=== PATIENT | female | born 1965 | race Caucasian/White ===

== ENCOUNTER 2018-01-10 23:50 | Emergency (ER) | payer MEDICAID ==
[2018-01-11] MEDS ORDERED: LIDOCAINE 5% (700 MG) TRANSDERMAL ADH..PATCH TP ONE (00:40)
[2018-01-11] MEDS ORDERED: FENTANYL CITRATE INJ/PF 100 MCG/2 ML AMPUL IV PRN (00:40)
[2018-01-11] MEDS ORDERED: KETOROLAC TROMETHAMINE INJ/PF 30 MG/1 ML SDV IV ONE (00:40)
--- NOTE | 2018-01-11 00:42 | ER Document Report ---
ED General - General Chief Complaint: Fall Stated Complaint: FALL/BACK PAIN Time Seen by Provider: 01/10/18 23:58 Notes: Patient is a 52-year-old female without past medical history presents after a fall down 5-6 stairs. Patient states that she was walking her dog whom wrapped her feet up in its leash. She states this caused her to fall down the steps. She states that she landed on the right hip and hit the right side of her head. She denies any loss of consciousness, focal weakness, numbness, vomiting, altered mental status, or significant head pain. She does not use any form of anticoagulation. She does note a severe, constant, throbbing pain to her right hip although notes it feels like it is "just really bruised and sore". EMS was contacted and patient was transported to the emergency department. She has not ambulated since the fall. Patient does also complain of some mild pain to the right side of her neck and trapezius. She denies any midline cervical spine tenderness. She has no history of similar injuries in the past. She did receive fentanyl prior to arrival which she states moderately improved her pain. She states any attempt at moving the right hip worsens her pain. TRAVEL OUTSIDE OF THE [place] IN LAST 30 DAYS: No - Related Data Allergies/Adverse Reactions: codeine [Codeine] Adverse Reaction (Verified 04/17/15 15:46) itching Past Medical History - General Information source: Patient - Social History Smoking Status: Never Smoker Chew tobacco use (# tins/day): No Frequency of alcohol use: None Drug Abuse: None Lives with: Alone Family History: Reviewed & Not Pertinent Patient has suicidal ideation: No Patient has homicidal ideation: No - Past Medical History Cardiac Medical History: Denies: Hx Coronary Artery Disease, Hx Heart Attack, Hx Hypertension Pulmonary Medical History: Denies: Hx Asthma, Hx Bronchitis, Hx COPD, Hx Pneumonia Neurological Medical History: Denies: Hx Cerebrovascular Accident, Hx Seizures Renal/ Medical History: Denies: Hx Peritoneal Dialysis Musculoskeltal Medical History: Reports Hx Arthritis Past Surgical History: Reports: Hx Abdominal Surgery - GASTRIC BYPASS - Immunizations Hx Diphtheria, Pertussis, Tetanus Vaccination: No Review of Systems - Review of Systems Notes: Constitutional: Negative for fever. Eyes: Negative for visual changes. ENT: Negative for facial injury Cardiovascular: Negative for chest injury. Respiratory: Negative for shortness of breath. Gastrointestinal: Negative for abdominal injury. Genitourinary: Negative for genital injury Musculoskeletal: Positive for right hip pain and right neck pain Skin: Negative for laceration/abrasions. Neurological: Positive for head injury. Physical Exam - Vital signs Vitals: Resp 12 01/11/18 00:26 Interpretation: Normal Notes: PHYSICAL EXAMINATION: GENERAL: Well-appearing, no acute distress. HEAD: Atraumatic, normocephalic. EYES: Pupils equal round and reactive to light, extraocular movements intact, sclera anicteric, conjunctiva are normal. ENT: nares patent, no oral pharyngeal trauma. No hemotympanum, no Zuleta's sign , no raccoon eyes. NECK: No midline cervical spine tenderness. Patient able to move their head to 45 bilaterally without any discomfort. LUNGS: Breath sounds clear to auscultation bilaterally and equal. No wheezes rales or rhonchi. HEART: Regular rate and rhythm without murmurs. CHEST WALL: No ecchymosis over the chest wall. ABDOMEN: Soft, nontender, normoactive bowel sounds. No guarding, no rebound. No abdominal bruising EXTREMITIES: Pain with axial loading and internal/external rotation of the right hip otherwise no areas of limited passive or active range of motion. No pitting or edema. No long bone deformities. BACK: No midline spinal tenderness, step-offs, or deformities. NEUROLOGICAL: Face symmetric. Tongue protrudes midline. Extraocular motions intact. Pupils are 2 mm and equally reactive. Normal speech, normal gait. 5 out of 5 strength in both the distal and proximal upper and lower extremities bilaterally. Sensation is grossly intact throughout. Finger to nose testing normal. Pronator drift normal. PSYCH: Normal mood, normal affect. SKIN: Warm, Dry, normal turgor, no rashes or lesions noted. Course - Re-evaluation Re-evalutation: 01/11/18 00:41 Presentation of a well patient in no acute distress, vitals within normal limits after a mechanical fall. No focal neurologic deficits on exam, no evidence of basilar skull fracture on exam without evidence of hemotympanum, raccoon eyes, or periauricular hematoma. No papilledema. Patient is not on anticoagulation. GCS is 15. No loss of consciousness. No episodes of vomiting. Patient is therefore negative via [place] head CT criteria and CT imaging will not be obtained at this time. Patient also evaluated by nexus criteria and found to be negative. No clinical evidence to suggest increased risk of cervical spine fracture. No indication for further imaging of the cervical spine. Patient's only extremity injury is a possible right hip injury she does have pain with axial loading and internal rotation of the hip. She states that it feels more sore. There is no shortening of the hip or internal/ external rotation. Will obtain an x-ray to further clarify. Chest and abdominal exam are benign without any focal tenderness, shortness of breath, or bruising over the chest or abdominal wall. Patient has no flank tenderness. 01/11/18 01:30 Right hip x-ray does not demonstrate any evidence of acute fracture dislocation. Patient has been able to ambulate. Repeat assessment is unremarkable. At this time will discharge with return precautions and follow- up recommendations. Verbal discharge instructions given a the bedside and opportunity for questions given. Medication warnings reviewed. Patient is in agreement with this plan and has verbalized understanding of return precautions and the need for primary care follow-up in the next 24-72 hours. - Vital Signs Vital signs: Temp Pulse Resp BP Pulse Ox 98.6 F 18 115/68 98 01/11/18 02:03 01/11/18 02:03 01/11/18 02:03 01/11/18 02:03 - Diagnostic Test Radiology reviewed: Image reviewed, Reports reviewed Radiology results interpreted by me: 01/11/18 01:30 Right hip and pelvis x-ray: No acute fracture dislocation Discharge - Discharge Clinical Impression: Fall Qualifiers: Encounter type: initial encounter Qualified Code(s): W19.XXXA - Unspecified fall, initial encounter Head trauma Qualifiers: Encounter type: initial encounter Qualified Code(s): S09.90XA - Unspecified injury of head, initial encounter Injury of right hip Qualifiers: Encounter type: initial encounter Qualified Code(s): S79.911A - Unspecified injury of right hip, initial encounter Condition: Good Disposition: HOME, SELF-CARE Additional Instructions: You have been seen in the Emergency Department (ED) today following a fall. Your workup today did not reveal any injuries that require you to stay in the hospital. You can expect, though, to be stiff and sore for the next several days. You can take ibuprofen 600 mg every 6 hours as needed for pain. You can apply a hot pack or electric heating pad to the sore areas. You can also use topical "Aspercreme with lidocaine" to sore areas as needed. Please follow up with your primary care doctor as soon as possible regarding today's ED visit and your recent accident. Call your doctor or return to the ED if you develop a sudden or severe headache , confusion, slurred speech, facial droop, weakness or numbness in any arm or leg, extreme fatigue, vomiting more than two times, severe abdominal pain, or other symptoms that concern you. Referrals: ROBERTO GUTIERREZ PA-C [Primary Care Provider] - Follow up as needed
--- NOTE | 2018-01-11 01:50 | RADIOLOGY REPORT (SQ) ---
EXAM DESCRIPTION: HIP RIGHT AP/LATERAL CLINICAL HISTORY: fall, pain COMPARISON: 09/01/2014 FINDINGS: Single view of the pelvis and lateral view of the right hip. No acute fracture or dislocation. Normal osseous mineralization. No abnormalities of visualized pelvis or sacrum. Pelvic soft tissues are unremarkable. IMPRESSION: No acute fracture or dislocation.
[2018-01-11 02:07] VITALS: BP 115/68
== END 2018-01-11 02:07 | disposition home or self-care (01) ==
LOC: ER 23:50
DX: S79.911A Unspecified injury of right hip, initial encounter (principal); S09.90XA Unspecified injury of head, initial encounter; M25.551 Pain in right hip; M54.2 Cervicalgia; W10.9XXA Fall (on) (from) unspecified stairs and steps, initial encounter; Y93.K1 Activity, walking an animal; Z98.84 Bariatric surgery status
CPT/HCPCS: 99284; 96374; 96375; 73502; J3010; J1885; J3490

== ENCOUNTER 2018-09-20 11:41 | Emergency (ER) | payer MEDICAID ==
--- NOTE | 2018-09-20 12:16 | RADIOLOGY REPORT (SQ) ---
EXAM DESCRIPTION: HAND RIGHT 3 VIEWS COMPLETED DATE/TIME: 09/20/2018 12:08 pm REASON FOR STUDY: punched wall COMPARISON: None. EXAM PARAMETERS: NUMBER OF VIEWS: Three views. TECHNIQUE: AP, lateral and oblique radiographic images acquired of the right hand. LIMITATIONS: None. FINDINGS: MINERALIZATION: Normal. BONES: No acute fracture or dislocation. No worrisome bone lesions. JOINTS: No effusions. SOFT TISSUES: No soft tissue swelling. No foreign body. OTHER: No other significant finding. IMPRESSION: NEGATIVE STUDY OF THE RIGHT HAND. NO RADIOGRAPHIC EVIDENCE OF ACUTE INJURY. TECHNICAL DOCUMENTATION: JOB ID: [id number] [employer]- All Rights Reserved Reading location - IP/workstation name: [email or web address]
[2018-09-20] MEDS ORDERED: IBUPROFEN 600 MG TABLET PO ONE (12:43)
--- NOTE | 2018-09-20 14:01 | RADIOLOGY REPORT (SQ) ---
EXAM DESCRIPTION: KNEE RIGHT 4 VIEWS COMPLETED DATE/TIME: 09/20/2018 1:47 pm REASON FOR STUDY: knee pain s/p fall COMPARISON: None. NUMBER OF VIEWS: Four views. TECHNIQUE: AP, lateral, and both oblique radiographic images acquired of the right knee. LIMITATIONS: None. FINDINGS: MINERALIZATION: Normal. BONES: No acute fracture or dislocation. No worrisome bone lesions. JOINT: No effusion. SOFT TISSUES: No soft tissue swelling. No radio-opaque foreign body. OTHER: No other significant finding. IMPRESSION: NEGATIVE STUDY OF THE RIGHT KNEE. NO RADIOGRAPHIC EVIDENCE OF ACUTE INJURY. TECHNICAL DOCUMENTATION: JOB ID: [id number] [employer]- All Rights Reserved Reading location - IP/workstation name: [email or web address]
--- NOTE | 2018-09-20 14:50 | ER Document Report ---
HPI - HPI Pain Level: 5 Notes: Patient is a 53-year-old female who presents with chief complaint of fall injury. Patient complains of right knee pain and right hand pain. Patient reports she was trying to hang Halloween decorations when the ladder slipped out from under her. Patient denies any other injuries, denies hitting her head , denies any loss of consciousness. - CONSTITUTIONAL Constitutional: DENIES: Fever, Chills - EENT EENT: DENIES: Sore Throat, Ear Pain, Eye problems - NEURO Neurology: DENIES: Headache, Weakness, Vision blurred, Dizzinesss / Vertigo - CARDIOVASCULAR Cardiovascular: DENIES: Chest pain - RESPIRATORY Respiratory: DENIES: Trouble Breathing, Coughing - GASTROINTESTINAL Gastrointestinal: DENIES: Abdominal Pain, Black / Bloody Stools - URINARY Urinary: DENIES: Dysuria, Urgency, Frequency - MUSCULOSKELETAL Musculoskeletal: REPORTS: Extremity pain - right hand and right knee Past Medical History - General Information source: Patient - Social History Smoking Status: Current Every Day Smoker Chew tobacco use (# tins/day): No Frequency of alcohol use: Rare Drug Abuse: None Family History: Reviewed & Not Pertinent Patient has suicidal ideation: No Patient has homicidal ideation: No - Past Medical History Cardiac Medical History: Denies: Hx Coronary Artery Disease, Hx Heart Attack, Hx Hypertension Pulmonary Medical History: Denies: Hx Asthma, Hx Bronchitis, Hx COPD, Hx Pneumonia Neurological Medical History: Denies: Hx Cerebrovascular Accident, Hx Seizures Renal/ Medical History: Denies: Hx Peritoneal Dialysis Musculoskeletal Medical History: Reports Hx Arthritis Past Surgical History: Reports: Hx Abdominal Surgery - GASTRIC BYPASS - Immunizations Hx Diphtheria, Pertussis, Tetanus Vaccination: No Vertical Provider Document - CONSTITUTIONAL Notes: PHYSICAL EXAMINATION: GENERAL: Well-appearing, well-nourished and in no acute distress. HEAD: Atraumatic, normocephalic. EYES: Pupils equal round extraocular movements intact, conjunctiva are normal. ENT: Nares patent NECK: Normal range of motion LUNGS: No respiratory distress Musculoskeletal: Normal range of motion, no swelling, erythema or ecchymosis noted to the right knee, mild swelling noted to patient's right hand, cap refill less than 3 seconds, normal motor and sensation distal to injury. NEUROLOGICAL: Normal speech, normal gait. PSYCH: Normal mood, normal affect. SKIN: Warm, Dry, normal turgor, no rashes or lesions noted. - INFECTION CONTROL TRAVEL OUTSIDE OF THE [place] IN LAST 30 DAYS: No Course - Re-evaluation Re-evalutation: X-rays are negative for any acute fracture or dislocation. Patient will be sent home in stable condition, instructed to take Motrin, ice and elevate any areas of pain. - Vital Signs Vital signs: Temp Pulse Resp BP Pulse Ox 97.9 F 89 18 119/67 98 09/20/18 11:47 09/20/18 11:47 09/20/18 11:47 09/20/18 11:47 09/20/18 11:47 Procedures - Immobilization Right hand Immobilizer type: Dhruv wrap Discharge - Discharge Clinical Impression: Contusion Qualifiers: Encounter type: initial encounter Contusion area: hand Laterality: right Qualified Code(s): S60.221A - Contusion of right hand, initial encounter Knee pain Qualifiers: Chronicity: acute Laterality: right Qualified Code(s): M25.561 - Pain in right knee Condition: Stable Disposition: HOME, SELF-CARE Additional Instructions: Contusion Your injury has resulted in a contusion -- a crushing of the deep tissues. No injury to important structures was detected during the physician's exam. Contusions vary in the amount of pain they cause, and in the length of time required for healing. Typically, the area will become bruised, and will remain painful to touch for two or three weeks. However, most patients are back to working and playing within a few days. After the initial period of rest and cold-packs, your symptoms (together with the doctor's recommendations) will determine how rapidly you can get back to full activity. Usually this means "do what feels okay, but don't do things that hurt." If re-examination was recommended, it's important to follow up as instructed. Call the doctor or return any time if pain increases, if swelling becomes severe, if you develop numbness or weakness in an injured extremity, or if any other alarming symptoms occur. Ice & Elevation Apply ice packs frequently against the painful area. Many different schedules are recommended, such as "20 minutes on, 20 minutes off" or "one hour ice, two hours rest." If you need to work, you may need to go longer between ice treatments. You should plan to have the area ice packed AT LEAST one- fourth of the time. The ice should be applied over the wrap, tape, or splint, or over a layer of cloth -- not directly against the skin. Some ice bags have a built-in cloth and can be put directly on the skin. Your injured part should be elevated as much as possible over the next 48 hours. Try to keep the injury above the level of the heart. Avoid use of the injured area. Elevation and rest will decrease the swelling. All of your x-rays today were negative. There are no fractures or dislocations. Please wear the Dhruv wrap for comfort. Apply ice and elevate as needed to help with pain and inflammation. Take ibuprofen 600 mg every 6 hours for pain. Follow-up with your primary care provider in the next 3-5 days for follow-up. Forms: Return to Work Referrals: ROBERTO GUTIERREZ PA-C [Primary Care Provider] - Follow up as needed
[2018-09-20 14:59] VITALS: BP 138/73
== END 2018-09-20 14:59 | disposition home or self-care (01) ==
LOC: ER 11:41
DX: S60.221A Contusion of right hand, initial encounter (principal); M25.561 Pain in right knee; M79.641 Pain in right hand; W11.XXXA Fall on and from ladder, initial encounter; Y92.007 Garden or yard of unspecified non-institutional (private) residence as the place of occurrence of the external cause; F17.200 Nicotine dependence, unspecified, uncomplicated; Z98.84 Bariatric surgery status
CPT/HCPCS: 99283; 73130; 73564; J3490

== ENCOUNTER 2018-10-31 14:13 | Emergency (ER) | payer MEDICAID ==
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
[2018-10-31] MEDS ORDERED: DIPH/PERTUSS(ACELL)/TETANUS VAC/PF 0.5 ML SYR (>=10YO) IM ONE (14:31)
[2018-10-31] MEDS ORDERED: ONDANSETRON 4 MG TAB.RAPDIS PO ONE (14:31)
[2018-10-31] MEDS ORDERED: DIAZEPAM 2 MG TABLET PO ONE (14:32)
[2018-10-31 15:04] LABS: ABSOLUTE EOSINOPHILS # (AUTO) 0.1 10^3/uL (0.0-0.6); ABSOLUTE LYMPHOCYTES (AUTO) 1.3 10^3/uL (0.5-4.7); ABSOLUTE MONOCYTES (AUTO) 0.5 10^3/uL (0.1-1.4); ABSOLUTE NEUT (AUTO) 5.1 10^3/uL (1.7-8.2); BASOPHILS % (AUTO) 0.6 % (0-2); EOSINOPHILS % (AUTO) 1.2 % (0-6); HEMATOCRIT 33.9 % (36.0-47.0); MEAN CORPUSCULAR HEMOGLOBIN 24.5 pg (27.0-33.4); MEAN CORPUSCULAR HGB CONC 32.4 g/dL (32.0-36.0); MEAN CORPUSCULAR VOLUME 76 fl (80-97); MONOCYTES % (AUTO) 6.6 % (3-13); PLATELET COUNT 377 10^3/uL (150-450); RED BLOOD COUNT 4.48 10^6/uL (3.72-5.28); RED CELL DISTRIBUTION WIDTH 18.9 % (11.5-14.0); SEGMENTED NEUTROPHILS % (AUTO) 72.6 % (42-78); TOTAL CELLS COUNTED % (AUTO) 100 %; WHITE BLOOD COUNT 7.1 10^3/uL (4.0-10.5)
[2018-10-31 15:23] LABS: ALANINE AMINOTRANSFERASE 13 U/L (9-52); ALBUMIN 3.7 g/dL (3.5-5.0); ALKALINE PHOSPHATASE 111 U/L (38-126); ANION GAP 12 (5-19); ASPARTATE AMINO TRANSFERASE 23 U/L (14-36); BILIRUBIN,DIRECT 0.2 mg/dL (0.0-0.4); BILIRUBIN,TOTAL 0.2 mg/dL (0.2-1.3); BLOOD UREA NITROGEN 11 mg/dL (7-20); CALCIUM 9.2 mg/dL (8.4-10.2); CARBON DIOXIDE 24 mmol/L (22-30); CHLORIDE 103 mmol/L (98-107); GLUCOSE 184 mg/dL (75-110); POTASSIUM 4.6 mmol/L (3.6-5.0); SODIUM 138.7 mmol/L (137-145); TOTAL PROTEIN 6.7 g/dL (6.3-8.2)
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
[2018-10-31] MEDS ORDERED: PROCHLORPERAZINE EDISYLATE INJ 10 MG/2 ML VIAL IV ONE (17:15)
[2018-10-31] MEDS ORDERED: DIPHENHYDRAMINE HCL 50 MG/ML VIAL IV ONE (17:15)
[2018-10-31] MEDS ORDERED: NORMAL SALINE 500 ML IV ONE (17:15)
[2018-10-31] MEDS ORDERED: ONDANSETRON ODT 4 MG TAB (6 TAB/ER DISP) PO PRN (18:48)
[2018-10-31 20:27] VITALS: BP 122/69
== END 2018-10-31 19:15 | disposition home or self-care (01) ==
LOC: ER 14:13
DX: S09.90XA Unspecified injury of head, initial encounter (principal); S16.1XXA Strain of muscle, fascia and tendon at neck level, initial encounter; S01.01XA Laceration without foreign body of scalp, initial encounter; R11.0 Nausea; Y04.2XXA Assault by strike against or bumped into by another person, initial encounter; F17.210 Nicotine dependence, cigarettes, uncomplicated; Z88.6 Allergy status to analgesic agent; Z98.84 Bariatric surgery status
CPT/HCPCS: 99284; 90471; 96374; 96375; 36415; 85025; 80053; 70450; 72125; 90715; 12001; L1830; J3490; J1200; S0119; J0780; J7040

== ENCOUNTER 2019-04-12 15:57 | Emergency (ER) | payer MEDICAID ==
--- NOTE | 2019-04-12 17:14 | ER Document Report ---
HPI - HPI Time Seen by Provider: 04/12/19 16:57 Pain Level: 5 Context: Patient is a 54-year-old female who presents the emergency department with a chief complaint of right foot and ankle pain. She states that her pain and swelling have been going on for the past few weeks. She was seen here, was given a steroid shot and an anti-inflammatory shot. They did not do x-rays at that time. She was not able to follow-up with her primary care doctor, because the primary care doctor was not in the office today. She has an extensive psychiatric history. She takes Suboxone, trazodone, Seroquel and other medications for her psychiatric issues. - CONSTITUTIONAL Constitutional: DENIES: Fever, Chills - EENT EENT: DENIES: Sore Throat - NEURO Neurology: DENIES: Headache - RESPIRATORY Respiratory: DENIES: Trouble Breathing - MUSCULOSKELETAL Musculoskeletal: REPORTS: Extremity pain - Right medial ankle Past Medical History - General Information source: Patient - Social History Smoking Status: Unknown if Ever Smoked Family History: Reviewed & Not Pertinent - Past Medical History Cardiac Medical History: Denies: Hx Coronary Artery Disease, Hx Heart Attack, Hx Hypertension Pulmonary Medical History: Denies: Hx Asthma, Hx Bronchitis, Hx COPD, Hx Pneumonia Neurological Medical History: Denies: Hx Cerebrovascular Accident, Hx Seizures Renal/ Medical History: Denies: Hx Peritoneal Dialysis Musculoskeletal Medical History: Reports Hx Arthritis Past Surgical History: Reports: Hx Abdominal Surgery - GASTRIC BYPASS - Immunizations Hx Diphtheria, Pertussis, Tetanus Vaccination: No Vertical Provider Document - CONSTITUTIONAL Agree With Documented VS: Yes Exam Limitations: No Limitations General Appearance: No Apparent Distress - INFECTION CONTROL TRAVEL OUTSIDE OF THE [place] IN LAST 30 DAYS: No - HEENT HEENT: Atraumatic, Normocephalic - NECK Neck: Normal Inspection - RESPIRATORY Respiratory: Breath Sounds Normal, No Respiratory Distress - CARDIOVASCULAR Cardiovascular: Regular Rate, Regular Rhythm - MUSCULOSKELETAL/EXTREMETIES Musculoskeletal/Extremeties: Tender - left medial ankle at the calcaneus, Edema - Mild edema noted to left medial ankle at the calcaneus. negative: Eccymosis - NEURO Level of Consciousness: Awake, Alert, Appropriate Motor/Sensory: No Motor Deficit, No Sensory Deficit - DERM Integumentary: Warm, Dry, No Rash Course - Re-evaluation Re-evalutation: 04/12/19 18:07 Patient does have a calcaneus spur noted on her x-ray. This is most likely the cause of her pain. She has no vascular compromise. Capillary refill is less than 3 seconds. She has good dorsalis pedis and posterior tibial pulses. She will be referred to orthopedics and podiatry. I have advised her that since she is on Suboxone, there are may be no medications that may help her, considering she already received Decadron and Toradol in urgent care with no relief. I discussed the findings with the patient. She is in agreement with this plan. She will be provided crutches here in the emergency department to help keep her off her foot. Verbal discharge instructions were given to the patient. They verbalized understanding. They are stable for discharge. - Vital Signs Vital signs: Temp Pulse Resp BP Pulse Ox 98.7 F 65 18 107/63 98 04/12/19 16:39 04/12/19 16:39 04/12/19 16:39 04/12/19 16:39 04/12/19 16:39 Procedures - Immobilization Right Ankle Pre-Proc Neuro Vasc Exam: Normal Immobilizer type: Dhruv wrap, Crutches Performed by: PCT Post-Proc Neuro Vasc Exam: Normal, Unchanged from pre-exam Alignment checked and good: Yes Discharge - Discharge Clinical Impression: Calcaneal spur of right foot Condition: Stable Disposition: HOME, SELF-CARE Instructions: Dhruv Wrap ([facility]), Use of Crutches ([facility]) Additional Instructions: You were seen today in the emergency department for right foot pain. You do have a spur on your bone in your heel. This is the cause of your pain. Please continue to take the medications you are currently on. Please follow-up with orthopedics or podiatry in regards to this visit. You can continue to take Tylenol 1000 mg and ibuprofen 600 mg every 6 hours for your pain. Forms: Return to School Referrals: ROBERTO GUTIERREZ PA-C [Primary Care Provider] - Follow up as needed CATRACHITA JIMENEZ DPM [ACTIVE STAFF] - Follow up in 3-5 days MICA ARCE MD [ACTIVE STAFF] - Follow up in 3-5 days
--- NOTE | 2019-04-12 17:55 | RADIOLOGY REPORT (SQ) ---
EXAM DESCRIPTION: FOOT RIGHT COMPLETE COMPLETED DATE/TIME: 04/12/2019 5:29 pm REASON FOR STUDY: right foot pain COMPARISON: None. NUMBER OF VIEWS: Three views. TECHNIQUE: AP, lateral and oblique radiographic images acquired of the right foot. LIMITATIONS: None. FINDINGS: MINERALIZATION: Normal. BONES: No fracture. Plantar calcaneal spur. JOINTS: No effusions. SOFT TISSUES: No soft tissue swelling. No foreign body. OTHER: No other significant finding. IMPRESSION: Calcaneal spur. No fracture. TECHNICAL DOCUMENTATION: JOB ID: [id number] [employer]- All Rights Reserved Reading location - IP/workstation name: [email or web address]
--- NOTE | 2019-04-12 17:56 | RADIOLOGY REPORT (SQ) ---
EXAM DESCRIPTION: ANKLE RIGHT COMPLETE COMPLETED DATE/TIME: 04/12/2019 5:29 pm REASON FOR STUDY: ankle/foot pain COMPARISON: None. NUMBER OF VIEWS: Three views. TECHNIQUE: AP, lateral, and oblique radiographic images acquired of the right ankle. LIMITATIONS: None. FINDINGS: MINERALIZATION: Normal. BONES: No fracture. Plantar calcaneal spur. JOINTS: No effusions. SOFT TISSUES: Mild soft tissue swelling more prominent laterally. OTHER: No other significant finding. IMPRESSION: Mild soft tissue swelling. No fracture. Calcaneal spur. TECHNICAL DOCUMENTATION: JOB ID: [id number] [employer]- All Rights Reserved Reading location - IP/workstation name: [email or web address]
[2019-04-12 18:26] VITALS: BP 98/60
== END 2019-04-12 18:28 | disposition home or self-care (01) ==
LOC: ER 15:57
DX: M77.31 Calcaneal spur, right foot (principal); M79.671 Pain in right foot; Z98.84 Bariatric surgery status
CPT/HCPCS: 99283

== ENCOUNTER 2019-07-22 18:31 | Emergency (ER) | payer MEDICAID ==
[2019-07-22 19:32] VITALS: BP 138/86
--- NOTE | 2019-07-22 20:09 | ER Document Report ---
ED Medical Screen (RME) - General Chief Complaint: Shoulder Injury Stated Complaint: RIB PAIN Time Seen by Provider: 07/22/19 20:06 Primary Care Provider: ROBERTO GUTIERREZ PA-C [Primary Care Provider] - Follow up as needed TRAVEL OUTSIDE OF THE [place] IN LAST 30 DAYS: No - Related Data Allergies/Adverse Reactions: codeine [Codeine] Adverse Reaction (Verified 07/04/19 14:26) itching Past Medical History - Past Medical History Cardiac Medical History: Denies: Hx Coronary Artery Disease, Hx Heart Attack, Hx Hypertension Pulmonary Medical History: Denies: Hx Asthma, Hx Bronchitis, Hx COPD, Hx Pneumonia Neurological Medical History: Denies: Hx Cerebrovascular Accident, Hx Seizures Renal/ Medical History: Denies: Hx Peritoneal Dialysis Musculoskeltal Medical History: Reports Hx Arthritis Past Surgical History: Reports: Hx Abdominal Surgery - GASTRIC BYPASS - Immunizations Hx Diphtheria, Pertussis, Tetanus Vaccination: No Physical Exam - Vital signs Vitals: Temp Pulse Resp BP Pulse Ox 97.8 F 80 12 138/86 H 98 07/22/19 19:29 07/22/19 19:29 07/22/19 19:29 07/22/19 19:29 07/22/19 19:29 Course - Vital Signs Vital signs: Temp Pulse Resp BP Pulse Ox 97.8 F 80 12 138/86 H 98 07/22/19 19:29 07/22/19 19:29 07/22/19 19:29 07/22/19 19:29 07/22/19 19:29 Doctor's Discharge - Discharge Referrals: ROBERTO GUTIERREZ PA-C [Primary Care Provider] - Follow up as needed
[2019-07-22] MEDS ORDERED: KETOROLAC TROMETHAMINE 60 MG/2 ML SDV IM ONE (20:26)
--- NOTE | 2019-07-22 20:33 | RADIOLOGY REPORT (SQ) ---
EXAM DESCRIPTION: RadLex: XR RIBS UNILATERAL WITH CHEST Views: 3, AP chest and 2 additional views of right ribs CLINICAL HISTORY: 54 years Female, fall COMPARISON: None. FINDINGS: Chest single view: Lungs are clear, with no focal infiltrate, pneumothorax, or pleural effusion. Mediastinum is within normal limits for this positioning. The left upper quadrant surgical clips and a staple line are noted. Ribs: There are slightly displaced acute fractures of the anterolateral portions of the right 3rd, 4th, and 5th ribs. No suspicious lytic or blastic lesions. IMPRESSION: 1. Acute slightly displaced right 3rd, 4th, and 5th rib fractures. 2. No pneumothorax.
--- NOTE | 2019-07-22 20:34 | RADIOLOGY REPORT (SQ) ---
EXAM DESCRIPTION: Left shoulder RadLex: XR SHOULDER 2 OR MORE VIEWS Views: 3 CLINICAL HISTORY: 54 years Female, fall COMPARISON: None. FINDINGS: Negative for acute fracture, dislocation, or radiopaque foreign body. IMPRESSION: 1. No acute findings.
--- NOTE | 2019-07-22 21:04 | ER Document Report ---
HPI - HPI Time Seen by Provider: 07/22/19 20:06 Pain Level: 5 Notes: Patient is a 54-year-old female presenting with multiple complaints today. She reports she was seen here several weeks ago and diagnosed with a rib contusion. She reports she continues to have pain to her right posterior and lateral ribs. She reports pain when she takes a deep breath or coughs. She denies any fever. She is also reporting some pain to the left shoulder states that she tripped earlier today and has an abrasion. - REPRODUCTIVE Reproductive: DENIES: : Past Medical History - General Information source: Patient - Social History Smoking Status: Current Every Day Smoker Frequency of alcohol use: None Drug Abuse: None Family History: Reviewed & Not Pertinent - Past Medical History Cardiac Medical History: Denies: Hx Coronary Artery Disease, Hx Heart Attack, Hx Hypertension Pulmonary Medical History: Denies: Hx Asthma, Hx Bronchitis, Hx COPD, Hx Pneumonia Neurological Medical History: Denies: Hx Cerebrovascular Accident, Hx Seizures Renal/ Medical History: Denies: Hx Peritoneal Dialysis Musculoskeletal Medical History: Reports Hx Arthritis Past Surgical History: Reports: Hx Abdominal Surgery - GASTRIC BYPASS - Immunizations Hx Diphtheria, Pertussis, Tetanus Vaccination: No Vertical Provider Document - CONSTITUTIONAL Notes: PHYSICAL EXAMINATION: GENERAL: Well-appearing, well-nourished and in no acute distress. HEAD: Atraumatic, normocephalic. EYES: Pupils equal round and reactive to light, extraocular movements intact, conjunctiva are normal. ENT: Nares patent, oropharynx clear without exudates. Moist mucous membranes. NECK: Normal range of motion, supple without lymphadenopathy LUNGS: Breath sounds clear to auscultation bilaterally and equal. No wheezes rales or rhonchi. HEART: Regular rate and rhythm without murmurs ABDOMEN: Soft, nontender, nondistended abdomen. No guarding, no rebound. No masses appreciated. Female : deferred Musculoskeletal: Normal range of motion, no pitting or edema. No cyanosis. Abrasion over anterior left shoulder. NEUROLOGICAL: Cranial nerves grossly intact. Normal speech, normal gait. Normal sensory, motor exams PSYCH: Normal mood, normal affect. SKIN: Warm, Dry, normal turgor, no rashes or lesions noted. - INFECTION CONTROL TRAVEL OUTSIDE OF THE [place] IN LAST 30 DAYS: No Course - Re-evaluation Re-evalutation: Left shoulder x-ray is negative for any acute fracture dislocation. Patient does have an abrasion to the posterior left shoulder. She has good range of motion. The ribs and chest x-ray do show 3 fractures which are not acute. There is no pneumothorax identified. Patient examination is unremarkable, she is able to take good deep breaths, she has full lung expansion bilaterally. She reports that she was not given an incentive spirometer at discharge at the last visit. I will send her home with an incentive spirometer as well as Toradol. Patient is currently taking Suboxone so I will not prescribe any narcotics at this time. Patient given strict instructions regarding the use of the incentive spirometer to try to prevent pneumonia. Patient was given a prescription for doxycycline in case she develops a fever I instructed her to start taking this. She does have a follow-up with her primary care provider in 4 days. Encourage patient to keep this appointment. - Vital Signs Vital signs: Temp Pulse Resp BP Pulse Ox 97.8 F 80 12 138/86 H 98 07/22/19 19:29 07/22/19 19:29 07/22/19 19:29 07/22/19 19:29 07/22/19 19:29 Discharge - Discharge Clinical Impression: Multiple fractures of ribs Qualifiers: Encounter type: subsequent encounter Fracture type: closed Laterality: right Fracture healing: with routine healing Qualified Code(s): S22.41XD - Multiple fractures of ribs, right side, subsequent encounter for fracture with routine healing Condition: Stable Disposition: HOME, SELF-CARE Additional Instructions: Rib Injuries and Fractures You have been diagnosed as having either bruised or broken ribs. These two injuries are treated in the same way. It will usually take four to six weeks for these injured ribs to heal. Sometimes, rib belts or anesthetic injections of the chest wall help reduce the pain. If you are using a rib belt, you should cough or take a deep breath at least every hour or two to prevent lung complications. You should not engage in any strenuous physical activity until released by your physician. The usual rule is "if it hurts, don't do it." Rib fractures can lead to serious lung complications including lung collapse, hemorrhage, and pneumonia. You should call the physician or return at once if any of the following occur: (1) Fever or chills. (2) Persistent cough, coughing up blood, or shortness of breath. (3) Increasing pain. (4) Weakness, lightheadedness, or fainting. As discussed please use the incentive spirometer, use this to take 10 breaths/h while awake. This will help to reduce the chance of you developing a pneumonia and will help keep your lungs expanded. Take the Toradol as prescribed. You may also take Tylenol with this but do not take ibuprofen. Apply Lidoderm patch to the most tender area. If you develop a fever go ahead and get the doxycycline filled, at this time you do not have a pneumonia but I want you to have this on hand just in case. Keep the follow-up appointment you have with your primary care provider for 07/29/2019. It is very important that they reevaluate you. Return to the emergency department sooner if you develop any of the above warning signs. Prescriptions: Ketorolac Tromethamine [Toradol 10 mg Tablet] 10 mg PO Q8HP PRN #24 tablet PRN Reason: Doxycycline Hyclate 100 mg PO BID #14 capsule Lidocaine [Lidoderm 5% (700 mg) Transdermal Patch] 1 patch TP DAILY #30 adh..patch Referrals: ROBERTO GUTIERREZ PA-C [Primary Care Provider] - Follow up as needed
[2019-07-22] MEDS ORDERED: LIDOCAINE 5% (700 MG) TRANSDERMAL ADH..PATCH TP ONE (21:09)
== END 2019-07-22 21:20 | disposition home or self-care (01) ==
LOC: ER 18:31
DX: S22.41XD Multiple fractures of ribs, right side, subsequent encounter for fracture with routine healing (principal); S40.212A Abrasion of left shoulder, initial encounter; M25.512 Pain in left shoulder; W18.40XA Slipping, tripping and stumbling without falling, unspecified, initial encounter
CPT/HCPCS: 71101; 73030; J1885; J3490; 96374; 99283

== ENCOUNTER 2020-06-09 08:01 | Emergency (ER) | payer SELFPAY ==
[2020-06-09 08:55] LABS: ABSOLUTE BASOPHILS # (AUTO) 0.1 10^3/uL (0.0-0.2); ABSOLUTE EOSINOPHILS # (AUTO) 0.2 10^3/uL (0.0-0.6); ABSOLUTE LYMPHOCYTES (AUTO) 2.4 10^3/uL (0.5-4.7); ABSOLUTE MONOCYTES (AUTO) 0.6 10^3/uL (0.1-1.4); ABSOLUTE NEUT (AUTO) 4.3 10^3/uL (1.7-8.2); BASOPHILS % (AUTO) 0.8 % (0-2); EOSINOPHILS % (AUTO) 2.5 % (0-6); HEMATOCRIT 35.7 % (36.0-47.0); HEMOGLOBIN 11.9 g/dL (12.0-15.5); LYMPHOCYTES % (AUTO) 31.6 % (13-45); MEAN CORPUSCULAR HEMOGLOBIN 26.9 pg (27.0-33.4); MEAN CORPUSCULAR HGB CONC 33.2 g/dL (32.0-36.0); MEAN CORPUSCULAR VOLUME 81 fl (80-97); MONOCYTES % (AUTO) 7.6 % (3-13); RED BLOOD COUNT 4.41 10^6/uL (3.72-5.28); RED CELL DISTRIBUTION WIDTH 18.5 % (11.5-14.0); SEGMENTED NEUTROPHILS % (AUTO) 57.5 % (42-78); TOTAL CELLS COUNTED % (AUTO) 100 %; WHITE BLOOD COUNT 7.5 10^3/uL (4.0-10.5)
--- NOTE | 2020-06-09 08:59 | RADIOLOGY REPORT (SQ) ---
EXAM DESCRIPTION: CHEST SINGLE VIEW IMAGES COMPLETED DATE/TIME: 06/09/2020 8:38 am REASON FOR STUDY: bed 6 difficulty breathing COMPARISON: 07/22/2019 EXAM PARAMETERS: NUMBER OF VIEWS: One view. TECHNIQUE: Single frontal radiographic view of the chest acquired. RADIATION DOSE: NA LIMITATIONS: None. FINDINGS: LUNGS AND PLEURA: No opacities, masses or pneumothorax. No pleural effusion. MEDIASTINUM AND HILAR STRUCTURES: No masses. Contour normal. HEART AND VASCULAR STRUCTURES: Heart normal in size. Normal vasculature. BONES: No acute findings. HARDWARE: None in the chest. OTHER: No other significant finding. IMPRESSION: NO ACUTE RADIOGRAPHIC FINDING IN THE CHEST. TECHNICAL DOCUMENTATION: JOB ID: [id number] 2010 [employer]- All Rights Reserved Reading location - IP/workstation name: [email or web address]
[2020-06-09 09:23] LABS: PLATELET COUNT 241 10^3/uL (150-450)
[2020-06-09 10:10] LABS: ALBUMIN 3.3 g/dL (3.5-5.0); ALKALINE PHOSPHATASE 142 U/L (38-126); ANION GAP 5 (5-19); ASPARTATE AMINO TRANSFERASE 32 U/L (14-36); BILIRUBIN,TOTAL 0.2 mg/dL (0.2-1.3); BLOOD UREA NITROGEN 6 mg/dL (7-20); CALCIUM 8.4 mg/dL (8.4-10.2); CARBON DIOXIDE 28 mmol/L (22-30); CHLORIDE 105 mmol/L (98-107); CREATINE KINASE 73 U/L (30-135); GLUCOSE 103 mg/dL (75-110); POTASSIUM 4.2 mmol/L (3.6-5.0); TOTAL PROTEIN 6.3 g/dL (6.3-8.2)
[2020-06-09 10:24] LABS: TROPONIN I < 0.012 ng/mL
[2020-06-09 10:28] LABS: APPEARANCE,URINE CLEAR; BILIRUBIN,URINE NEGATIVE (NEGATIVE); COLOR,URINE YELLOW; GLUCOSE, URINE NEGATIVE (NEGATIVE); KETONES,URINE NEGATIVE (NEGATIVE); LEUKOCYTE ESTERASE,URINE MODERATE (NEGATIVE); NITRITE,URINE NEGATIVE (NEGATIVE); PROTEIN,URINE NEGATIVE (NEGATIVE); URINE SPECIFIC GRAVITY 1.005; UROBILINOGEN,URINE NEGATIVE mg/dL (<2.0)
--- NOTE | 2020-06-09 12:13 | ER Document Report ---
Entered by OANH REECE SCRIBE 06/09/20 0859 Acting as scribe for:CAREY DAVISON MD ED Respiratory Problem - General Chief Complaint: Shortness Of Breath Stated Complaint: TROUBLE BREATHING Time Seen by Provider: 06/09/20 08:40 Primary Care Provider: ROBERTO GUTIERREZ PA-C [Primary Care Provider] - Follow up as needed Information source: Patient Notes: This 55 year old female patient presents to the emergency department today with complaints of shortness of breath. Patient states she is a daily smoker and has a smoker's cough. Patient states every morning she wakes up short of breath due to her cough and it goes away shortly. Patient states this morning she was short of breath and could not clear sputum from her cough causing her to panic. Patient states she has a panic disorder and is not on medication for this due to trouble with insurance. Denies any fever, chills, sore throat, chest pain, headache, or N/V/D. Patient states x2 days ago she went to donate blood and felt dizzy and lightheaded when the needle was inserted. TRAVEL OUTSIDE OF THE [place] IN LAST 30 DAYS: No - Related Data Allergies/Adverse Reactions: codeine [Codeine] Adverse Reaction (Verified 07/04/19 14:26) itching Past Medical History - General Information source: Patient - Social History Smoking Status: Current Every Day Smoker Cigarette use (# per day): Yes Chew tobacco use (# tins/day): No Frequency of alcohol use: None Drug Abuse: None Family History: Reviewed & Not Pertinent Patient has homicidal ideation: No Musculoskeletal Medical History: Reports Hx Arthritis Psychiatric Medical History: Reports: Hx Anxiety - Panic disorder Past Surgical History: Reports: Hx Abdominal Surgery - GASTRIC BYPASS - Immunizations Hx Diphtheria, Pertussis, Tetanus Vaccination: No Review of Systems - Review of Systems Constitutional: See HPI. denies: Chills, Fever EENT: See HPI. denies: Throat pain Cardiovascular: See HPI. denies: Chest pain Respiratory: See HPI, Cough, Short of breath, Sputum Gastrointestinal: See HPI. denies: Diarrhea, Nausea, Vomiting Genitourinary: No symptoms reported Female Genitourinary: No symptoms reported Musculoskeletal: No symptoms reported Skin: No symptoms reported Hematologic/Lymphatic: No symptoms reported Neurological/Psychological: See HPI. denies: Headaches -: Yes All other systems reviewed and negative Physical Exam - Vital signs Vitals: Pulse Ox 98 06/09/20 08:12 - General General appearance: Appears well, Alert - HEENT Head: Normocephalic, Atraumatic Eyes: Normal Pupils: PERRL Pharynx: Erythema - mild. No: Tonsillar hypertrophy Neck: Normal, Supple - Respiratory Respiratory status: No respiratory distress Chest status: Nontender Breath sounds: Normal Chest palpation: Normal - Cardiovascular Rhythm: Regular Heart sounds: Normal auscultation, S1 appreciated, S2 appreciated Murmur: No - Abdominal Inspection: Normal Distension: No distension Bowel sounds: Normal Tenderness: Nontender - Extremities General upper extremity: Normal inspection. No: Edema General lower extremity: Normal inspection. No: Edema - Neurological Neuro grossly intact: Yes Cognition: Normal Orientation: AAOx4 Speech: Normal - Psychological Associated symptoms: Normal affect, Normal mood - Skin Skin Temperature: Warm Skin Moisture: Dry Skin Color: Normal Course - Re-evaluation Re-evalutation: 06/09/20 12:06 Patient not having any acute distress at this time. Denies any chest pain shortness of breath cough fever or chills. 06/09/20 12:10 Inasmuch as patient is feeling better because of the pandemic environment we are living at this time we will test patient for COVID 1960 mentioned today she had a coughing spell greater than usual for her in the a.m. - Vital Signs Vital signs: Temp Pulse Resp BP Pulse Ox 98.1 F 16 115/69 97 06/09/20 08:27 06/09/20 10:05 06/09/20 10:05 06/09/20 10:05 06/09/20 12:06 Vital signs are stable pulse ox 97% with a respiratory rate of 16. Afebrile - Laboratory Result Diagrams: 06/09/20 08:10 06/09/20 09:28 Laboratory results interpreted by me: 06/09/20 06/09/20 06/09/20 08:10 09:20 09:28 Hgb 11.9 L Hct 35.7 L MCH 26.9 L RDW 18.5 H BUN 6 L Alkaline Phosphatase 142 H Albumin 3.3 L Ur Leukocyte Esterase MODERATE H Laboratory values did not show any acute process patient has a low BUN may be due to dieting. Elevated alkaline phosphatase mildly elevated over baseline. Hemoglobin of 12 hematocrit 35 slightly low. Moderate leukocyte esterase on urinalysis. Patient has no urinary symptoms. - Diagnostic Test Radiology reviewed: Image reviewed, Reports reviewed Radiology results interpreted by me: 06/09/20 12:08 Chest x-ray no acute process no infiltrate. - EKG Interpretation by Me Additional EKG results interpreted by me: 06/09/20 12:09 Twelve-lead EKG shows normal sinus rhythm rate of [address]-T wave changes. Discharge - Discharge Clinical Impression: Chronic cough, Anxiety Condition: Stable Disposition: HOME, SELF-CARE Additional Instructions: Today you had a greater than usual coughing spell this morning requiring your call to EMS and transport to the ED. You back to your baseline at this time without any cough or chest pain and there is no evidence for pneumonia or any infectious disease that we can assign to this problem. However in the pandemic environment where an we are testing you today for COVID-19. Our instructions that you are simple self quarantine up to total of 14days however if your test result with which should be available within the next 3 to 4 days reports to you that you have a negative ALT COVID-19 virus test you no longer need to further quarantine otherwise if you are reported as positive and continue your quarantine for 14 days. Then if you have no symptoms your quarantined can be discontinued continue to exercise proper safe distancing and mask wearing. Follow-up with your primary care physician. Should you become worse in terms of symptoms of upper respiratory problems or otherwise infections please do not hesitate to follow-up with your primary care doctor or come to the emergency department. Cough Suppressant/Expectorant Medication You are to use a cough medication as needed for relief of symptoms. This medicine is a combination of an expectorant (to make the mucous thinner and more easily "coughed up") and a cough suppressant (to reduce the frequency of coughing). The cough-suppressant medicine is related to narcotics. You may experience mild nausea and sleepiness. Some patients who are very sensitive to narcotics may have stomach pain from this medicine. Taking the medicine with food reduces these side effects. Do not drive or work with machinery until you know how this medicine affects you. The expectorant should have no side effects. Iodine-containing expectorants (such as organidin) should not be taken by persons with active thyroid disease unless approved by your doctor. Call the doctor if you develop shortness of breath, hives, rash, itching, lightheadedness, or severe nausea and vomiting. Referrals: ROBERTO GUTIERREZ PA-C [Primary Care Provider] - Follow up as needed I personally performed the services described in the documentation, reviewed and edited the documentation which was dictated to the scribe in my presence, and it accurately records my words and actions.
[2020-06-09 12:31] VITALS: BP 122/87
--- NOTE | 2020-06-09 16:12 | EKG REPORT ---
SEVERITY:- NORMAL ECG - SINUS RHYTHM : Confirmed by: José Manuel Lora MD 09-Jun-2020 16:12:04
== END 2020-06-09 12:25 | disposition home or self-care (01) ==
LOC: ER 08:01
DX: R05 Cough (principal); F41.9 Anxiety disorder, unspecified; R06.02 Shortness of breath; R74.8 Abnormal levels of other serum enzymes; R09.89 Other specified symptoms and signs involving the circulatory and respiratory systems; F17.210 Nicotine dependence, cigarettes, uncomplicated; Z20.828 Contact with and (suspected) exposure to other viral communicable diseases
CPT/HCPCS: 93005; 99284; 36415; 87070; 82553; 87880; 82550; 85025; 87635; 80053; 81001; 84484; 71045; 93010; C9803

== ENCOUNTER 2020-10-04 00:54 | Emergency (ER) | payer SELFPAY ==
[2020-10-04] MEDS ORDERED: ACETAMINOPHEN 325 MG TABLET PO ONE ×2 (02:32→08:17)
[2020-10-04] MEDS ORDERED: IBUPROFEN 800 MG TABLET PO ONE (04:23)
--- NOTE | 2020-10-04 05:21 | RADIOLOGY REPORT (SQ) ---
Pelvis and right hip x-ray three views on 10/04/2020 at 4:32 AM CLINICAL INDICATION: Right hip pain after fall COMPARISON: 01/11/2018 FINDINGS: The hips are well located. The SI joints are well aligned. Vascular calcifications are noted. There are no fractures. No significant degenerative changes are noted in the hips. IMPRESSION: No acute abnormality.
--- NOTE | 2020-10-04 07:57 | ER Document Report ---
ED General - General TRAVEL OUTSIDE OF THE [place] IN LAST 30 DAYS: No <SHRADDHA CADET - Last Filed: 10/04/20 08:08> <OSMANI CRABTREE - Last Filed: 10/04/20 09:42> - General Chief Complaint: Hip Injury Stated Complaint: RIGHT HIP PAIN Time Seen by Provider: 10/04/20 04:18 Primary Care Provider: ROBERTO GUTIERREZ PA-C [Primary Care Provider] - Follow up as needed - HPI Notes: Patient is a 55 y/o female with a hx of sciatica who presents s/p a fall that occurred two days ago. Patient states she slipped down five metal stairs and landed on her right hip on Thursday around 5PM. Patient denies any preceding symptoms and slipped because the stairs were wet. She reports radiating pain down her right buttock and leg down to her posterior knee. She denies hitting her head, any LOC, and any other injuries. Patient endorses tobacco and alcohol use but denies recreational drug use. (SHRADDHA CADET) - Related Data Allergies/Adverse Reactions: codeine [Codeine] Adverse Reaction (Verified 07/04/19 14:26) itching Past Medical History - General Information source: Patient - Social History Smoking Status: Current Every Day Smoker Frequency of alcohol use: tonight Family History: Reviewed & Not Pertinent - Past Medical History Cardiac Medical History: Denies: Hx Coronary Artery Disease, Hx Heart Attack, Hx Hypertension Pulmonary Medical History: Denies: Hx Asthma, Hx Bronchitis, Hx COPD, Hx Pneumonia Neurological Medical History: Denies: Hx Cerebrovascular Accident, Hx Seizures Renal/ Medical History: Denies: Hx Peritoneal Dialysis Musculoskeletal Medical History: Reports Hx Arthritis Psychiatric Medical History: Reports: Hx Anxiety - Panic disorder Past Surgical History: Reports: Hx Abdominal Surgery - GASTRIC BYPASS - Immunizations Hx Diphtheria, Pertussis, Tetanus Vaccination: No <SHRADDHA CADET - Last Filed: 10/04/20 08:08> Review of Systems - Review of Systems Constitutional: No symptoms reported EENT: No symptoms reported Cardiovascular: No symptoms reported Respiratory: No symptoms reported Gastrointestinal: No symptoms reported Genitourinary: No symptoms reported Female Genitourinary: No symptoms reported Musculoskeletal: See HPI Skin: No symptoms reported Hematologic/Lymphatic: No symptoms reported Neurological/Psychological: No symptoms reported <SHRADDHA CADET - Last Filed: 10/04/20 08:08> Physical Exam <SHRADDHA CADET - Last Filed: 10/04/20 08:08> - Vital signs Vitals: Temp Pulse Resp BP Pulse Ox 98.4 F 83 16 158/108 H 100 10/04/20 01:05 10/04/20 01:05 10/04/20 01:05 10/04/20 01:05 10/04/20 01:05 - Notes Notes: PHYSICAL EXAMINATION: GENERAL: Well-appearing, well-nourished and in no acute distress. HEAD: Atraumatic, normocephalic. EYES: sclera anicteric, conjunctiva are normal. ENT: Moist mucous membranes. NECK: Normal range of motion LUNGS: Normal work of breathing HEART: 2+ radial pulses bilaterally EXTREMITIES: Tenderness to right hip and groin extending to the right lower lumbar paraspinal muscles. Palpable DP and PT pulses on the right. No pitting or edema. No cyanosis. BACK: No bony midline tenderness over vertebrae. NEUROLOGICAL: Antalgic gait. No focal neurological deficits. Moves all extremities spontaneously and on command. PSYCH: Normal mood, normal affect. SKIN: Warm, Dry, normal turgor, no rashes or lesions noted. (SHRADDHA CADET) Course <SHRADDHA CADET - Last Filed: 10/04/20 08:08> - Diagnostic Test Radiology reviewed: Image reviewed, Reports reviewed <OSMANI CRABTREE - Last Filed: 10/04/20 09:42> - Re-evaluation Re-evalutation: Patient is a 55 y/o female with a hx of sciatica who presents status post fall on her right hip. She endorses pain to the right hip. Patient is hypertensive with a BP of 154/108, vital signs are otherwise unremarkable. On exam, antalgic gait with tenderness to the right hip. Tylenol and ibuprofen given for pain. X-ray of the right hip and pelvis is negative. CT of the right lower extremity ordered. Patient signed out to Dr. Crabtree as we are awaiting the CT results. (HELIOSHRADDHA) 10/04/20 09:40 Ct scan shows no fracture (OSMANI CRABTREE) - Vital Signs Vital signs: Temp Pulse Resp BP Pulse Ox 98.0 F 76 16 127/90 H 99 10/04/20 09:32 10/04/20 09:32 10/04/20 01:05 10/04/20 09:32 10/04/20 09:32 Discharge <SHRADDHA CADET - Last Filed: 10/04/20 08:08> <OSMANI CRABTREE - Last Filed: 10/04/20 09:42> - Discharge Clinical Impression: Contusion, hip Qualifiers: Encounter type: initial encounter Laterality: right Qualified Code(s): S70.01XA - Contusion of right hip, initial encounter Condition: Stable Disposition: HOME, SELF-CARE Instructions: Contusion ([facility]) Prescriptions: Hydrocodone/Acetaminophen [[place] 5-325 mg Tablet] 1 tab PO Q6 PRN 3 Days #12 tablet PRN Reason: For Pain Referrals: MICA ARCE MD [ACTIVE STAFF] - Follow up in 1 week
--- NOTE | 2020-10-04 09:18 | RADIOLOGY REPORT (SQ) ---
EXAM DESCRIPTION: CT RT LOWER EXTREMITY WITHOUT IMAGES COMPLETED DATE/TIME: 10/04/2020 8:38 am REASON FOR STUDY: right hip pain s/p fall COMPARISON: 10/04/2020 TECHNIQUE: CT scan of the right hip performed without intravenous or oral contrast. Images reviewed with soft tissue and bone windows. Reconstructed coronal and sagittal MPR images reviewed. All lily ges stored on PACS. All CT scanners at this facility use dose modulation, iterative reconstruction, and/or weight based d osing when appropriate to reduce radiation dose to as low as reasonably achievable (ALARA). [facility]: Dose Right [facility]: CareDose [facility]: Dose Right [facility]: Teradose 4D [facility]: The Society RADIATION DOSE: CT Rad equipment meets quality standard of care and radiation dose reduction techniq ues were employed. CTDIvol: 10.3 mGy. DLP: 366 mGy-cm. mGy. LIMITATIONS: None. FINDINGS: PELVIC BONES: No acute fracture. No worrisome bone lesions. Degenerative changes are seen of the pubic symphysis and sacroiliac joints. VISUALIZED SPINE: No acute findings. SYMPTOMATIC HIP: No acute fracture or dislocation. No worrisome bone lesions. Background of moderate degenerative changes demonstrating marginal osteophytes and subcortical cystic changes of the acetab ulum. OPPOSITE HIP: No acute fracture or dislocation. No worrisome bone lesions. Background of moderate de generative changes demonstrating marginal osteophytes and subcortical cystic changes of the acetabulu m. PELVIC SOFT TISSUES: No significant findings. EXTRAPELVIC SOFT TISSUES: No significant findings. OTHER: Degenerative changes are seen of the lower lumbar spine. IMPRESSION: No evidence of acute osseous injury. Background of diffuse degenerative changes as deta iled above. TECHNICAL DOCUMENTATION: JOB ID: [id number] Quality ID # [id number]: Final reports with documentation of one or more dose reduction techniques (e.g., Au tomated exposure control, adjustment of the mA and/or kV according to patient size, use of iterative reconstruction technique) 2010 [employer]- All Rights Reserved Reading location - IP/workstation name: [facility]IA
[2020-10-04 10:16] VITALS: BP 141/78
== END 2020-10-04 10:18 | disposition home or self-care (01) ==
LOC: ER 00:54
DX: S70.01XA Contusion of right hip, initial encounter (principal); M25.551 Pain in right hip; M79.604 Pain in right leg; M25.561 Pain in right knee; R10.30 Lower abdominal pain, unspecified; M54.5 Low back pain; W10.9XXA Fall (on) (from) unspecified stairs and steps, initial encounter; Z88.8 Allergy status to other drugs, medicaments and biological substances
CPT/HCPCS: 99284